=== PATIENT | male | born 1940 | race Caucasian/White ===

== ENCOUNTER → 2018-05-01 | Outpatient (CLI) | payer OTHER ==
[~2018-05-01] MED LIST: IOPAMIDOL (ISOVUE-300) 100 ML BTL ONE
== END ==
LOC: CIMAGING 14:11
PROVIDERS: ATTEND Family Medicine
DX: R11.0 Nausea (principal); K57.32 Diverticulitis of large intestine without perforation or abscess without bleeding; N28.1 Cyst of kidney, acquired; K76.89 Other specified diseases of liver; N32.9 Bladder disorder, unspecified
CPT/HCPCS: 74177; Q9967; 82565-PO